=== PATIENT | male | born 2000 | race Caucasian/White ===

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

== ENCOUNTER 2021-08-17 13:12 | Emergency (ER) | payer BC ==
[2021-08-17 13:40] LABS: HEMOGLOBIN 14.4 gm/dl (14.0-17.5); RED BLOOD COUNT 4.62 M/UL (4.20-5.50); WHITE BLOOD COUNT 9.2 K/UL (4.5-11.0)
[2021-08-17 13:59] LABS: BUN/CREATININE RATIO 23 (0-10)
== END 2021-08-18 01:15 | disposition left against medical advice (07) ==
LOC: ER1 13:12
PROVIDERS: Student in an Organized Health Care Education/Training Program
DX: T14.91XA Suicide attempt, initial encounter (principal); T42.4X2A Poisoning by benzodiazepines, intentional self-harm, initial encounter; F32.A Depression, unspecified; Z20.822 Contact with and (suspected) exposure to COVID-19
CPT/HCPCS: 80053; 80307; 85025; 93005; 99283; G0480; U0002

== ENCOUNTER 2022-01-04 16:54 | Emergency (ER) | payer BC ==
[2022-01-04 17:42] LABS: HEMOGLOBIN 14.8 gm/dl (14.0-17.5); RED BLOOD COUNT 4.75 M/UL (4.20-5.50); WHITE BLOOD COUNT 10.2 K/UL (4.5-11.0)
[2022-01-04 18:06] LABS: BUN/CREATININE RATIO 22 (0-10)
[2022-01-04] MEDS ORDERED: ZOFRAN ODT 4 MG4 MG PO (20:00)
[2022-01-04] MEDS ORDERED: BENTYL 20MG TAB20 MG PO (20:00)
== END 2022-01-04 20:18 | disposition home or self-care (01) ==
LOC: ER1 16:54
PROVIDERS: Physician Assistant
DX: R10.816 Epigastric abdominal tenderness (principal); R11.2 Nausea with vomiting, unspecified
CPT/HCPCS: 0240U; 71045; 80053; 83690; 84439; 84443; 85025; 96374; 99284; J2405